=== PATIENT | male | born 1955 | race Caucasian/White ===

== ENCOUNTER 2017-03-07 17:49 | Emergency (ER) | payer BC, OTHER ==
[~2017-03-07] VITALS: Ht 188 cm; Wt 92.8 kg
[~2017-03-07 17:49] MED LIST: ASPI325T4 PO; CIPR500T3 PO; LISI-167 PO; LOVA10TA PO; OMEP20TA62 PO; OXYC-302 PO; TAMS0.4C2 PO
[2017-03-07 17:50] VITALS: BP 152/94
== END 2017-03-07 19:52 | disposition home or self-care (01) ==
LOC: ED 19:43
DX: H90.11 Conductive hearing loss, unilateral, right ear, with unrestricted hearing on the contralateral side (principal); H92.01 Otalgia, right ear; E78.5 Hyperlipidemia, unspecified; I10 Essential (primary) hypertension; I25.2 Old myocardial infarction; K21.9 Gastro-esophageal reflux disease without esophagitis
CPT/HCPCS: 70450; 99284; J7512

== ENCOUNTER 2017-04-21 08:11 | Observation (INO) | payer BC ==
[~2017-04-21] VITALS: Ht 188 cm; Wt 93.3 kg
[2017-04-21] MEDS ORDERED: SODIUM CHLORIDE FLUSH 10ML SYR IVF ONE (08:30)
[2017-04-21] MEDS ORDERED: ASPIRIN 81 MG TABLET CHEW PO ONE (08:30)
[2017-04-21] MEDS ORDERED: NITROGLYCERIN SINGLE TAB 0.4 MG SL PRN (08:30)
[2017-04-21 08:58] LABS: BLOOD UREA NITROGEN 32 mg/dL (7-18)
[2017-04-21] MEDS ORDERED: SODIUM CHLORIDE FLUSH 10ML SYR IVF PRN (11:00)
[2017-04-21] MEDS ORDERED: ONDANSETRON 2MG/ML, 2ML IVPush PRN (12:00)
[2017-04-21] MEDS ORDERED: ENALAPRILAT 1.25 MG/ML, 2ML IVPush PRN (12:00)
[2017-04-21] MEDS ORDERED: ACETAMINOPHEN 325 MG TABLET PO PRN (12:00)
[2017-04-21] MEDS ORDERED: NITROGLYCERIN 0.4 MG BOTTLE (25 TABS) SL PRN (12:00)
[2017-04-21] MEDS ORDERED: NITROGLYCERIN 0.4 MG/SPRAY SL PRN (12:00)
[2017-04-21] MEDS ORDERED: morphine SULFATE 10 MG/ML, 1ML IVPush PRN (12:00)
[2017-04-21] MEDS ORDERED: OMEP20TA62 PO (12:19)
[2017-04-21 12:20] VITALS: BP 133/86
[2017-04-21 12:48] LABS: IS PT STATUS REG ER OR PRE ER? NO
[2017-04-21 18:28] LABS: IS PT STATUS REG ER OR PRE ER? NO
[2017-04-21 18:33] VITALS: BP 129/84
[2017-04-21] MEDS ORDERED: SIMVASTATIN 5 MG TABLET PO SCH (21:00)
[2017-04-22 03:15] VITALS: BP 134/88
[2017-04-22 06:40] VITALS: BP 135/82
[2017-04-22] MEDS ORDERED: PANTOPROZOLE 40MG TABLET PO SCH (07:30)
[2017-04-22] MEDS ORDERED: NITR12SP2 SL (07:58)
[2017-04-22] MEDS ORDERED: ASPIRIN 325 MG TABLET PO SCH (09:00)
[2017-04-22] MEDS ORDERED: LISINOPRIL 10 MG TABLET PO SCH (09:00)
== END 2017-04-22 11:15 | disposition home or self-care (01) ==
LOC: ED 08:45 → EDIP 10:45 → INTOOBSV 10:45 → 5SO 12:05
PROVIDERS: ADMIT Family Medicine; ATTEND Family Medicine
DX: I25.119 Atherosclerotic heart disease of native coronary artery with unspecified angina pectoris (principal); R61 Generalized hyperhidrosis; E78.5 Hyperlipidemia, unspecified; I10 Essential (primary) hypertension; I25.2 Old myocardial infarction; J45.909 Unspecified asthma, uncomplicated; K21.9 Gastro-esophageal reflux disease without esophagitis; Z87.442 Personal history of urinary calculi; Z95.5 Presence of coronary angioplasty implant and graft
CPT/HCPCS: 36415; 71010; 80048; 80061; 82040; 83880; 84443; 84484; 85025; 85610; 85730; 93005; 93017; 99285; G0378

== ENCOUNTER 2017-07-02 03:00 | Emergency (ER) | payer BC ==
[~2017-07-02] VITALS: Ht 188 cm; Wt 93.4 kg
[~2017-07-02 03:00] MED LIST changes: +ASPI325T17 PO; -ASPI325T4 PO; +NITR12SP2 SL
[2017-07-02] MEDS ORDERED: HYDROmorphone 1 MG/ML, 1ML ONE ×2 (03:48→03:50)
[2017-07-02] MEDS ORDERED: KETOROLAC 30 MG/1 ML ONE (03:49)
[2017-07-02 03:59] LABS: HEMATOCRIT 43.6 % (39.2-51.8); HEMOGLOBIN 14.6 g/dL (13.7-18.0); WHITE BLOOD COUNT 9.5 x10^3/uL (3.4-10)
[2017-07-02] MEDS ORDERED: HYDROmorphone 1 MG/ML, 1ML IVPush PRN (04:00)
[2017-07-02] MEDS ORDERED: SODIUM CHLORIDE FLUSH 10ML SYR IVF ONE (04:00)
[2017-07-02] MEDS ORDERED: SODIUM CHLORIDE 0.9% 1,000ML IVBOLUS ONE (04:00)
[2017-07-02] MEDS ORDERED: KETOROLAC 30 MG/1 ML IVPush ONE (04:00)
[2017-07-02 04:09] LABS: BLOOD UREA NITROGEN 28 mg/dL (7-18)
[2017-07-02 04:50] VITALS: BP 117/69
== END 2017-07-02 05:29 | disposition home or self-care (01) ==
LOC: ED 03:26
DX: R10.9 Unspecified abdominal pain (principal); E78.5 Hyperlipidemia, unspecified; I10 Essential (primary) hypertension; K21.9 Gastro-esophageal reflux disease without esophagitis; I25.10 Atherosclerotic heart disease of native coronary artery without angina pectoris; I25.2 Old myocardial infarction; Z95.5 Presence of coronary angioplasty implant and graft; Z87.442 Personal history of urinary calculi
CPT/HCPCS: 36415; 76770; 80048; 81003; 82040; 85025; 96361; 96374; 96375; 99285; J1170; J1885; J7030